=== PATIENT | female | born 1965 | race Caucasian/White ===

== ENCOUNTER → 2018-02-11 | Outpatient (CLI) | payer OTHER ==
--- NOTE | 2018-02-11 16:58 | MAM ---
EXAM DESCRIPTION: 3D Diagnostic, Bilateral: Digital Mammography CLINICAL HISTORY: 52 yearsFemaleLUMP swelling left breast... Mother with breast cancer. No personal history of breast cancer. Childbirth. Postmenopausal. No HRT. Lifetime risk of developing breast cancer (Tyrer-Cuzick model) is 17.3 %. COMPARISON: 2-D digital screening bilateral study 01/27/2014. No prior reports available.. TECHNIQUE: Bilateral CC LM MLO projection full-field images, digital mammographic tomosynthesis technique. Bilateral full-field 2-D MLO images. CAD not utilized. FINDINGS: The breast parenchymal density pattern is: Heterogeneously dense breast tissue, which may obscure small masses. No skin thickening or nipple retraction bilateral microcalcifications. Right axillary lymph node. No new focal, stellate mass or density, focal asymmetry , and no suspicious microcalcifications bilaterally. Stable mammograms compared to prior study, taking into account differences in mammographic technique IMPRESSION: Benign exam BIRAD CATEGORY: 2 BENIGN FINDINGS RECOMMENDATIONS: FOLLOW UP: Routine digital bilateral screening, one year interval from January 2018. Written communication explaining the IMPRESSION and follow-up, will be mailed to the patient and referring health care provider. According to the [employer], yearly mammograms are recommended starting at age 40 and continuing as long as a woman is in good health. Any breast change noted on a breast self-exam should be reported promptly to the patient's healthcare provider. Breast MRI is recommended for women with an approximately 20-25% or greater lifetime risk of breast cancer, including women with a strong family history of breast or ovarian cancer and women who have been treated for Hodgkin's disease. A negative mammographic report should not delay tissue diagnosis in patients with significant clinical history or physical findings. Extremely dense breast tissue limits the sensitivity of digital mammography. Electronically signed by: Ashwin Bruno MD 02/11/2018 4:57 PM CDT
== END ==
LOC: MAMMO 16:30
PROVIDERS: ATTEND Family Medicine
DX: N63.14 Unspecified lump in the right breast, lower inner quadrant (principal)
CPT/HCPCS: 77066; G0279

== ENCOUNTER → 2020-03-28 | Outpatient (CLI) | payer BC | LOC: GMA MATASK 14:10 | PROVIDERS: ATTEND Family Medicine | DX: E03.9 Hypothyroidism, unspecified (principal) ==

== ENCOUNTER 2020-06-06 09:33 | Emergency (ER) | payer BC ==
[2020-06-06] MEDS ORDERED: LIDOCAINE 1% 10 ML VIAL INJ ONE ×2 (09:46→09:47)
--- NOTE | 2020-06-06 09:47 | ED.PDOC ---
History of Present Illness - General Chief Complaint: Upper Extremity Injury Stated Complaint: foreign object stuck in rt pinky Time Seen by Provider: 06/06/20 09:45 Source: patient - History of Present Illness Initial Comments: 54 yo female who presents with chief complaint of metallic foreign body to right pinky finger. Patient reports she was wiping off a table just prior to arrival when she felt something sharp prick her right pinky finger. She looked down and noted a small metallic pen which had pierced transversely through the middle portion of her pinky finger. She reports minimal sharp pain without radiation and bleeding. She has not taken any medicine for the pain. Pain is worse with manipulation of the pen and with movement of the finger. Denies any weakness or numbness or color change. She is uncertain of the date of her last tetanus immunization. Allergies/Adverse Reactions: Allergies Penicillins Allergy (Verified 09/22/14 19:30) Home Medications: Ambulatory Orders Cpypdvnlfi-Eootmjuwpqcmx-Pjwwq [Butalbital/Acetaminophen/ 43-476-99-30 mg] 1 cap PO Q4H PRN 09/22/14 Mirtazapine [Remeron] 7.5 mg PO BEDTIME #30 tab 09/23/14 diltiaZEM HCL CD [Cardizem CD] 120 mg PO DAILY #30 cap 09/23/14 Cephalexin Monohydrate [Keflex] 500 mg PO BID 5 Days #10 cap 06/06/20 Review of Systems - Review of Systems Review of Systems: 06/06/20 09:57 as per HPI All other Systems: Reviewed and Negative Past Medical History (General) - Patient Medical History Hx Seizures: No Hx Stroke: No Hx Asthma: No Hx of COPD: No Hx Cardiac Disorders: No Hx Congestive Heart Failure: No Hx Pacemaker: No Hx Hypertension: No Hx Diabetes: No Hx MRSA: No - Vaccination History Hx Tetanus, Diphtheria Vaccination: Yes - Social History Hx Alcohol Use: No Hx Substance Use: No Hx Physical Abuse: No Hx Emotional Abuse: No - Female History Patient : No Family Medical History - Family History Mother Family History: No Known Living Status: Unknown Cause of : Cancer, colon, with mets to brain and lung Hx Family Cancer: Yes Hx Family;Other: two weeks ago Father Family History: Unknown Physical Exam - Physical Exam General Appearance: Alert, Comfortable, No apparent distress Eyes, Ears, Nose, Throat Exam: normal ENT inspection Neck: supple, normal inspection Cardiovascular/Respiratory: regular rate, rhythm, no M/R/G, normal peripheral pulses, normal breath sounds, no respiratory distress Abdominal Exam: non-tender Elbow/Forearm Exam: normal inspection Wrist Exam: normal inspection Hand Exam: soft tissue tenderness - Small metallic pin foreign body noted to pass through the middle phalanx superficial soft tissue in a transverse fashion of the right fifth digit Neuro/Tendon: normal sensation, normal motor functions, normal tendon functions Mental Status: alert, oriented x 3 Skin Exam: normal color, warm/dry Progress - Progress Progress: 06/06/20 09:58 Metallic foreign body of right fifth digit -Removed easily on first attempt in the ED without need for anesthetic -Superficial/minor injury. Will update tetanus shot and placed on prophylactic antibiotics with Keflex for 5 days -Discharged home in good condition, return warnings discussed Isidro Tabor MD Billing #[id number] Departure - Departure Clinical Impression: Metal foreign body in right hand Time of Disposition: 10:00 Disposition: Discharge to Home or Self Care Condition: Good Departure Forms: ED Discharge - Pt. Copy, Patient Portal Self Enrollment Instructions: DI for Arm Pain, Foreign Body in Skin (DC) Diet: resume usual diet Activity: increase activity as tolerated Referrals: Daniel Hsieh MD [Primary Care Provider] - 1-2 Weeks Prescriptions: Cephalexin Monohydrate [Keflex] 500 mg PO BID 5 Days #10 cap Home Medications: Ambulatory Orders Jgidraxvty-Dpjbyywgleysa-Fqsjz [Butalbital/Acetaminophen/ 11-699-12-30 mg] 1 cap PO Q4H PRN 09/22/14 Mirtazapine [Remeron] 7.5 mg PO BEDTIME #30 tab 09/23/14 diltiaZEM HCL CD [Cardizem CD] 120 mg PO DAILY #30 cap 09/23/14 Cephalexin Monohydrate [Keflex] 500 mg PO BID 5 Days #10 cap 06/06/20 Additional Instructions: Wash the wound site 2-3 times daily with warm soap and water and reapply topical antibiotic ointment and clean dressing until well-healed. Take the antibiotics as directed in order to prevent infection. Return the ED if the area develops worsening redness, warmth, pain, or puslike drainage which may indicate infection.
[2020-06-06] MEDS ORDERED: TETANUS,DIPHTHERIA,PERTUSSIS 1 EA SYG IM ONE (09:55)
[2020-06-06 10:24] VITALS: BP 120/87; TEMP 97.3; O2SAT 97
== END 2020-06-06 10:24 | disposition home or self-care (01) ==
LOC: ER 09:33
DX: S60.456A Superficial foreign body of right little finger, initial encounter (principal); W45.8XXA Other foreign body or object entering through skin, initial encounter; Y93.89 Activity, other specified; Z88.0 Allergy status to penicillin; Y92.9 Unspecified place or not applicable